=== PATIENT | female | born 1985 | race Caucasian/White ===

== ENCOUNTER 2017-08-13 17:14 | Emergency (ER) | payer BC ==
[~2017-08-13] VITALS: Ht 167.6 cm; Wt 91.2 kg
[2017-08-13] MEDS ORDERED: CLARITIN10 MG PO (17:23)
[2017-08-13] MEDS ORDERED: ALAVERT10 M1 PO (17:23)
[2017-08-13] MEDS ORDERED: TRAMADOL HCL50 MG PO (17:38)
[2017-08-13 17:42] VITALS: BP 131/82
== END 2017-08-13 17:43 | disposition home or self-care (01) ==
LOC: EME 17:14
DX: K08.89 Other specified disorders of teeth and supporting structures (principal)
CPT/HCPCS: 99281; 99283